=== PATIENT | female | born 1960 | race Asian ===

== ENCOUNTER 2020-01-13 21:49 | Emergency (ER) | payer BC, OTHER ==
[~2020-01-13] VITALS: Ht 157.5 cm; Wt 59.0 kg
[2020-01-13 23:28] VITALS: BP 135/79
[2020-01-13] MEDS ORDERED: KETOROLAC TROMETH 60MG/2ML VIAL IM ONE (23:30)
== END 2020-01-13 23:50 | disposition home or self-care (01) ==
LOC: ER 21:49
DX: M75.32 Calcific tendinitis of left shoulder (principal); I10 Essential (primary) hypertension
CPT/HCPCS: 73030; 96372; 99283; J1885

== ENCOUNTER 2022-04-05 20:08 | Emergency (ER) | payer BC, OTHER ==
[~2022-04-05] VITALS: Ht 157.5 cm; Wt 58.0 kg
[2022-04-05 21:55] LABS: Basophils # (auto) 0 10 ^3/uL (0-0.2); Basophils % (auto) 0.3 % (0.0-2.0); Eosinophils # (auto) 0 10 ^3/uL (0-0.8); Eosinophils % (auto) 0.2 % (0.0-7.0); Hematocrit 43.6 % (36.0-46.0); Hemoglobin 14.2 g/dL (12.2-16.2); Lymphocytes # (auto) 2.1 10 ^3/uL (0.4-5.4); Lymphocytes % (auto) 27.4 % (10.0-50.0); Mean Corpuscular Hemoglobin 28.3 pg (28.0-32.0); Mean Corpuscular Hgb Conc. 32.7 g/dL (32.0-36.0); Mean Corpuscular Volume 86.7 fL (80.0-100.0); Monocytes # (auto) 0.4 10 ^3/uL (0-1.3); Monocytes % (auto) 4.7 % (0.0-12.0); Neutrophils # (auto) 5.2 10 ^3/uL (1.6-8.6); Neutrophils % (auto) 67.4 % (37.0-80.0); Nucleated Red Blood Cells % 0.1 %; Red Blood Cells 5.03 10^6/uL (4.0-5.20); White Blood Cell 7.7 10^3/uL (4.4-10.8)
[2022-04-05 22:14] LABS: Albumin 4.2 g/dL (3.4-5.0); Calcium 9.3 mg/dL (8.5-10.1); Potassium 3.7 mmol/L (3.5-5.1)
[2022-04-05 22:18] LABS: BUN/Creatinine Ratio 17.1; Bilirubin, Total 0.4 mg/dL (0.2-1.0); Total Protein 8.3 g/dL (6.4-8.2)
[2022-04-05 23:42] LABS: Urine Bacteria NONE SEEN /hpf (None Seen); Urine Blood Negative /uL (Negative); Urine Specific Gravity 1.023 (1.001-1.035); Urine WBC 1 /hpf (0 - 5)
[2022-04-06] MEDS ORDERED: ONDANSETRON ODT 4 MG TAB PO ONE (00:30)
[2022-04-06] MEDS ORDERED: ONDA-144 PO (00:30)
[2022-04-06 01:14] VITALS: BP 163/86
== END 2022-04-06 02:02 | disposition home or self-care (01) ==
LOC: ER 20:09
DX: R51.9 Headache, unspecified (principal); R11.2 Nausea with vomiting, unspecified; N39.0 Urinary tract infection, site not specified; I10 Essential (primary) hypertension
CPT/HCPCS: 36415; 80053; 81001; 83690; 85025; 99283; Q0162